=== PATIENT | male | born 1995 | race Caucasian/White ===

== ENCOUNTER 2022-03-25 18:30 | Observation (INO) ==
[2022-03-25 19:12] LABS: Basophils # (auto) 0.07 K/uL (0-0.2); Basophils % (auto) 0.8 %; Eosinophils # (auto) 0.02 K/uL (0-0.50); Eosinophils % (auto) 0.2 %; Hematocrit (blood only) 40.2 % (40.1-51.0); Hemoglobin 13.6 g/dl (14.0-18.0); Immature Granulocytes # (auto) 0.02 K/uL (0.00-0.02); Immature Granulocytes % (auto) 0.2 %; Lymphocytes # (auto) 1.73 K/uL (1.2-3.4); Lymphocytes % (auto) 20.9 %; Mean Corpuscular Hemoglobin 30.7 pg (25.0-34.0); Mean Corpuscular Hgb Conc 33.8 g/dL (32.0-36.0); Mean Corpuscular Volume 90.7 fL (80.0-100.0); Monocytes # (auto) 0.55 K/uL (0.24-0.82); Monocytes % (auto) 6.7 %; Neutrophils # (auto) 5.88 K/uL (1.4-6.5); Neutrophils % (auto) 71.2 %; Platelet Count 335 K/uL (130-400); RDW Coefficient of Variation 12.2 % (11.5-14.5); RDW Standard Deviation 40.9 fL (36.4-46.3); Red Blood Count 4.43 M/uL (4.63-6.08); White Blood Count 8.27 K/ul (4.8-10.8)
[2022-03-25 19:32] LABS: Albumin Globulin Ratio 1.7 (0.9-2); Albumin Level 5.3 gm/dl (3.4-5.0); BUN Creatinine Ratio 11.4 (10-20); Bilirubin,Total 0.7 mg/dl (0.2-1.0); Calcium 10.2 mg/dl (8.5-10.1); Creatinine Clr Calc Pharmacy 81.2 ml/min; Est GFR (African American) 111.4 ml/min; Est GFR (Non-African American) 96.1 ml/min; Globulin 3.1 gm/dl (2.5-4.0); Potassium 3.7 mmol/L (3.5-5.1); Total Protein 8.4 gm/dl (6.0-8.3)
[2022-03-25 19:48] LABS: Appearance Urine Clear (Clear); Bilirubin Urine Negative (Negative); Blood Urine Negative (Negative); Color Urine Yellow; Glucose Urine UA Negative (Negative); Ketones Urine 2+ (Negative); Leukocyte Esterase Urine Negative (Negative); Nitrite Urine Negative (Negative); Protein Urine Negative (Negative); Urobilinogen Urine Negative (Negative)
[2022-03-25] MEDS ORDERED: KETOROLAC 30 MG/ML VIAL IV STA (23:07)
--- NOTE | 2022-03-25 23:13 | Emergency Department Note ---
History of Present Illness General Chief complaint: Back Injury/Pain Stated complaint: BACK PAIN, BLOOD IN STOOL, VOMITING BLOOD Time Seen by Provider: 03/25/22 22:56 History of Present Illness Maximum Pain Intensity: 6 This is a 27-year-old male presenting to the emergency department for evaluation of abdominal pain, blood in stool, one episode of bloody emesis, as well as right-sided low back pain. The patient is usually healthy and does not take medication on a regular basis. He has had some GI issues in the past and reports having upper and lower scoping performed through the [facility] system about 6 years ago for nonspecific anemia. This was reportedly normal. He does not have any recent travel history. The patient's most recent symptoms have been ongoing for about the past 3 weeks, but his most eliciting symptom today is that he now has right back/flank pain that is new. He feels like he is eating and drinking as normal. No family history of inflammatory bowel disease. He may have a cousin that has celiac disease. The patient does not have any history of abdominal surgery and rates his current discomfort a 6/10. He does not identify aggravating or alleviating factors. Past Med/Surg History Medical History No chronic diseases present Surgical History No significant past surgical history Social History Smoking Status: Current every day smoker Tobacco Type: E-cigarettes / Vaping Preferred Language: Greek Feels Safe at Home: Yes Review of Systems A total of 10 systems reviewed and were otherwise negative Physical Exam Vital Signs Vital Signs - 24 hr 03/25/22 18:42 03/25/22 21:39 03/25/22 23:20 Temperature 37.2 C Temperature Source Temporal Artery Scan Pulse Rate 119 H Pulse Rate [Finger] 96 H 68 Pulse Rhythm [Finger] Regular Pulse Strength [Finger] Normal Respiratory Rate 18 16 18 Respiratory Effort / Characteristics Non-Labored Spontaneous Non-Labored Spontaneous Respiratory Depth Normal Normal Normal Respiratory Pattern Regular Blood Pressure 158/82 H Blood Pressure [Right Arm] 165/88 H 136/95 Blood Pressure Mean 107 Blood Pressure Mean [Right Arm] 113 108 Blood Pressure Position [Right Arm] Lying Sitting Pulse Oximetry 98 100 99 Oxygen Delivery Method Room Air Room Air Room Air Sepsis Recent Fever Within 48 Hours No Sepsis New/Unexplained Change in Mental Status No Sepsis Action Taken by Nursing No Action Required 03/26/22 01:00 Temperature Temperature Source Pulse Rate Pulse Rate [Finger] 91 H Pulse Rhythm [Finger] Pulse Strength [Finger] Respiratory Rate 18 Respiratory Effort / Characteristics Non-Labored Spontaneous Respiratory Depth Normal Respiratory Pattern Blood Pressure Blood Pressure [Right Arm] 156/93 H Blood Pressure Mean Blood Pressure Mean [Right Arm] 114 Blood Pressure Position [Right Arm] Sitting Pulse Oximetry 98 Oxygen Delivery Method Room Air Sepsis Recent Fever Within 48 Hours Sepsis New/Unexplained Change in Mental Status Sepsis Action Taken by Nursing VITALS: Vitals are noted on the nurse's note and reviewed by myself. Vital signs stable. GENERAL: Well-developed, well-nourished, white male, who is in no acute distress and resting comfortably. Patient is cooperative with the examination. HEAD: Normocephalic atraumatic. MOUTH: Mucous membranes moist. Tonsils are not enlarged. Pharynx without erythema, blood, or exudate. Uvula midline. Airway patent. NECK: Supple without nuchal rigidity. No lymphadenopathy. No thyromegaly. Cervical spine is nontender. HEART: Regular rate and rhythm without murmurs gallops or rubs. LUNGS: Clear to auscultation bilaterally without wheezes, rales or rhonchi. No retractions or accessory muscle use. ABDOMEN: Positive normal bowel sounds x 4. Soft, nontender, without masses or organomegaly. No guarding or rebound tenderness. MUSCULOSKELETAL: No muscle atrophy, erythema, or edema noted. Full range of motion in all extremities. NEURO: Patient was alert and oriented to person place and time. CN II through XII grossly intact. Course Administered Medications Discontinued Medications Sodium Chloride (Nss 1000ml) 1,000 mls @ 999 mls/hr IV .Q1H1M YOMI Stop: 03/26/22 00:15 Last Infusion: 03/26/22 01:05 Dose: 0 mls/hr Documented By: Admin: 03/25/22 23:18 Dose: 999 mls/hr Documented By: CC Ioversol (Optiray 350 100ml) 100 ml IV ONCE ONE Stop: 03/25/22 23:37 Last Admin: 03/25/22 23:37 Dose: 84 ml Documented By: NICO Ketorolac Tromethamine (Ketorolac 30 Mg/Ml Vial) 30 mg IV NOW STA Stop: 03/25/22 23:08 Last Admin: 03/25/22 23:18 Dose: 30 mg Documented By: THERESE Medical Decision Making Differential Diagnosis Differential diagnosis: Etiologies such as biliary colic, cholecystitis, hepatitis, pancreatitis, cardiac disease, pancreatitis, gastritis, peptic ulcer disease, appendicitis, cystitis, diverticulitis, mesenteric ischemia, inflammatory bowel disease, ileus, bowel obstruction, testicular/adnexal torsion, aortic pathology, shingles, as well as others were considered Laboratory Data Result diagrams: 03/25/22 19:05 03/25/22 19:05 Lab Results 03/25/22 03/25/22 03/25/22 Range/Units 19:00 19:05 19:05 WBC 8.27 (4.8-10.8) K/ul RBC 4.43 L (4.63-6.08) M/uL Hgb 13.6 L (14.0-18.0) g/dl Hct 40.2 (40.1-51.0) % MCV 90.7 (80.0-100.0) fL MCH 30.7 (25.0-34.0) pg MCHC 33.8 (32.0-36.0) g/dL RDW Std Deviation 40.9 (36.4-46.3) fL RDW Coeff of Archie 12.2 (11.5-14.5) % Plt Count 335 (130-400) K/uL MPV 10.0 (9.4-12.4) fL Immature Gran % (Auto) 0.2 % Neut % (Auto) 71.2 % Lymph % (Auto) 20.9 % [place] % (Auto) 6.7 % Eos % (Auto) 0.2 % Baso % (Auto) 0.8 % Neut # (Auto) 5.88 (1.4-6.5) K/uL Lymph # (Auto) 1.73 (1.2-3.4) K/uL [place] # (Auto) 0.55 (0.24-0.82) K/uL Eos # (Auto) 0.02 (0-0.50) K/uL Baso # (Auto) 0.07 (0-0.2) K/uL Immature Gran # (Auto) 0.02 (0.00-0.02) K/uL ESR (0-15) mm/hr Sodium 138 (136-145) mmol/L Potassium 3.7 (3.5-5.1) mmol/L Chloride 100 (98-107) mmol/L Carbon Dioxide 27 (21-32) mmol/L Anion Gap 11 (3-11) BUN 12 (6-23) mg/dl Creatinine 1.05 (0.6-1.4) mg/dl Est Cr Clr Drug Dosing 81.2 ml/min Est GFR ( Amer) 111.4 ml/min Est GFR (Non-Af Amer) 96.1 ml/min BUN/Creatinine Ratio 11.4 (10-20) Glucose 110 H (70-99(Fasting)) mg/dl Calcium 10.2 H (8.5-10.1) mg/dl Magnesium (1.7-2.4) mg/dl Total Bilirubin 0.7 (0.2-1.0) mg/dl AST 36 (13-39) U/L ALT 28 (7-52) U/L Alkaline Phosphatase 45 (34-104) U/L C-Reactive Protein (0-0.5) mg/dl Total Protein 8.4 H (6.0-8.3) gm/dl Albumin 5.3 H (3.4-5.0) gm/dl Globulin 3.1 (2.5-4.0) gm/dl Albumin/Globulin Ratio 1.7 (0.9-2) Lipase 49 (11-82) U/L Urine Color Yellow Urine Appearance Clear (Clear) Urine pH 6.0 (4.5-7.5) Ur Specific Vanderbilt 1.020 (1.000-1.030) Urine Protein Negative (Negative) Urine Glucose (UA) Negative (Negative) Urine Ketones 2+ H (Negative) Urine Blood Negative (Negative) Urine Nitrite Negative (Negative) Urine Bilirubin Negative (Negative) Urine Urobilinogen Negative (Negative) Ur Leukocyte Esterase Negative (Negative) SARS-CoV-2, RNA, NAAT (NEGATIVE) 03/25/22 03/25/22 03/26/22 Range/Units 19:05 19:05 Unknown WBC (4.8-10.8) K/ul RBC (4.63-6.08) M/uL Hgb (14.0-18.0) g/dl Hct (40.1-51.0) % MCV (80.0-100.0) fL MCH (25.0-34.0) pg MCHC (32.0-36.0) g/dL RDW Std Deviation (36.4-46.3) fL RDW Coeff of Archie (11.5-14.5) % Plt Count (130-400) K/uL MPV (9.4-12.4) fL Immature Gran % (Auto) % Neut % (Auto) % Lymph % (Auto) % [place] % (Auto) % Eos % (Auto) % Baso % (Auto) % Neut # (Auto) (1.4-6.5) K/uL Lymph # (Auto) (1.2-3.4) K/uL [place] # (Auto) (0.24-0.82) K/uL Eos # (Auto) (0-0.50) K/uL Baso # (Auto) (0-0.2) K/uL Immature Gran # (Auto) (0.00-0.02) K/uL ESR 18 H (0-15) mm/hr Sodium (136-145) mmol/L Potassium (3.5-5.1) mmol/L Chloride (98-107) mmol/L Carbon Dioxide (21-32) mmol/L Anion Gap (3-11) BUN (6-23) mg/dl Creatinine (0.6-1.4) mg/dl Est Cr Clr Drug Dosing ml/min Est GFR ( Amer) ml/min Est GFR (Non-Af Amer) ml/min BUN/Creatinine Ratio (10-20) Glucose (70-99(Fasting)) mg/dl Calcium (8.5-10.1) mg/dl Magnesium 2.0 (1.7-2.4) mg/dl Total Bilirubin (0.2-1.0) mg/dl AST (13-39) U/L ALT (7-52) U/L Alkaline Phosphatase (34-104) U/L C-Reactive Protein < 0.50 (0-0.5) mg/dl Total Protein (6.0-8.3) gm/dl Albumin (3.4-5.0) gm/dl Globulin (2.5-4.0) gm/dl Albumin/Globulin Ratio (0.9-2) Lipase (11-82) U/L Urine Color Urine Appearance (Clear) Urine pH (4.5-7.5) Ur Specific Vanderbilt (1.000-1.030) Urine Protein (Negative) Urine Glucose (UA) (Negative) Urine Ketones (Negative) Urine Blood (Negative) Urine Nitrite (Negative) Urine Bilirubin (Negative) Urine Urobilinogen (Negative) Ur Leukocyte Esterase (Negative) SARS-CoV-2, RNA, NAAT NEGATIVE (NEGATIVE) Imaging Data Radiologist's Impression: Preliminary Findings Only See Final Report For Complete Findings CT ABDOMEN & PELVIS With Contrast: No bowel obstruction or inflammation. Negative for diverticulitis or colitis. There is sludge in the appendix. The appendiceal thickness is borderline at approximately 8 mm. This may be because of the intraluminal sludge. No appendiceal or periappendiceal inflammation is identified. Nevertheless correlate with any right lower quadrant pain to make sure there are no signs or symptoms of appendicitis. No free intraperitoneal air or free fluid. Normal liver. No calcified gallstones. Normal spleen. Normal pancreas. Normal adrenal glands. Normal kidneys and urinary bladder. Osseous structures are intact. Radiologist:Yann Rincon MD [facility] Narrative Physical exam and history were performed. Nursing notes, EMR, and Medication List were personally reviewed. Patient appears to have abdominal discomfort bringing him to the ER. Some of his symptoms have been ongoing for several weeks with some more right-sided back pain bringing him specifically to the ER tonight. He does not appear toxic on examination. The patient arrives during a period of very high ER volume and acuity with extended wait times. Nursing protocol orders are available for my review at the time of patient evaluation. The patient's blood work is as above and was reviewed. He does not have a significantly elevated white blood cell count, gross anemia, bandemia, or significant electrolyte imbalance. Lipase and transaminases are not diagnostic. Sed rate and CRP are unremarkable. Urine does not show obvious evidence of infection. I did engage with case management and they were able to find old [facility] records of the patient's upper and lower endoscopy that did not show any significant findings. Because of the patient's discomfort I did elect perform CT scan of the belly. CT scan was reviewed by myself and radiology, and [facility] reading may suggest an early appendicitis. He certainly does not have evidence of perforation or complicated findings otherwise. Because of the abnormal CT scan I did reach out to the surgical team. The patient was evaluated at bedside by Milo Rae PA-C, who will bring the patient into the hospital for observation and reevaluation in the morning. The patient did have a COVID test that was negative. Patient was pleased with this and was comfortable with staying in the hospital. Please see the surgical team's dictation for further patient course, plan, and disposition. The chart was completed utilizing [employer] Speech Voice Recognition Software. Grammatical errors, random word insertions, pronoun errors, and incomplete sentences are an occasional consequence of this system due to software limitations, ambient noise, and hardware issues. Any formal questions or concerns about the content, text, or information contained within the body of this dictation should be directly addressed to the provider for clarification. . Impression & Plan Abdominal pain in male, Abnormal CT of the abdomen Discharge Plan Visit Data Chief Complaint: Back Injury/Pain Stated Complaint: BACK PAIN, BLOOD IN STOOL, VOMITING BLOOD ED Provider: Tarsha Wells ED Midlevel Provider: Tristan Rosales Discharge Problem: Abdominal pain in male, Abnormal CT of the abdomen Forms Stand Alone Forms: My [facility] Referrals Referrals: PCP,NO [Primary Care Provider] -
[2022-03-25] MEDS ORDERED: SODIUM CHLORIDE 0.9% 1000ML 1,000 ML IV SCH (23:15)
[2022-03-25] MEDS ORDERED: OPTIRAY 350 100ml IV ONE (23:36)
[2022-03-25 23:42] LABS: C Reactive Protein < 0.50 mg/dl (0-0.5)
--- NOTE | 2022-03-26 01:23 | History & Physical Report ---
Date of Service March 26, 2022 Assessment & Plan (1) Abdominal pain: Plan: The cause of patient's abdominal pain is not definitively been ascertained. It is possible that the patient has appendicitis as he is noted to have borderline thickness of his appendix with some appendiceal sludge, however 1 would expect that patient would have some appendiceal or periappendiceal inflammation particularly with pain that has been ongoing for 3 weeks. In addition 1 would expect the patient would likely have leukocytosis with the same presentation. As it is not clear if the patient definitively has appendicitis we will proceed as follows: We will admit the patient on observation to the hospital We will keep the patient n.p.o. We will provide IV fluid for hydration Analgesics we provided Antiemetics will be provided We will monitor the patient without antibiotics for the present time and follow serial exams and serial labs. Have discussed case with my attending physician Dr. Franks. He wishes to personally review the CAT scan with our in-house radiologist in the morning and then determine if the patient will require surgery (the above-noted CT scan read was performed by the [facility] service) Will use SCDs for DVT prevention, no chemical means until it is ascertain if patient requires surgical intervention Additional recommendations be forthcoming based on his clinical course as it unfolds He will be a level 1 full code As above. Patient seen. WBC still normal with 6000. I reviewed the CT scan. His pain is primarily on his right buttock with some radiation to the lower abdomen as well as a little bit down the back of his leg. He is quite active. He has had this for about 3 weeks. He is afebrile. Vitals are stable. On examination he does not have any peritoneal signs. Negative Rovsing. Negative McBurney's. I do not believe he has acute appendicitis. Clinically consistent with musculoskeletal issue. I will discharge him today on twice daily Naprosyn as well as a Medrol Dosepak and he is to use heat to the affected area. He already has an appointment with his PCP on Wednesday and I would also like to see him in about a week. Should the symptoms get worse fever vomiting etc. he is to return to the emergency room. I have answered all his questions he agrees with this plan. History of Present Illness Chief Complaint: Abdominal and back pain Primary Care Provider: NO PCP This is a 27-year-old male who presented to [facility] emergency department secondary to ongoing abdominal and back pain. Patient notes that he has been having abdominal pain primarily located in the lower abdomen which appears to be greatest in the right lower quadrant for 3 weeks. Patient says that he has had nausea without vomiting. He denies any fevers, shakes, or chills. He does not note any modifying factors to his pain. He has not sought medical attention prior to today and has not been taking any antibiotics. He denies any prior abdominal surgeries. As the pain has been ongoing for 3 weeks I did question him what precipitated his emergency depa rtment visit and he notes that in addition to the abdominal pain which is not remitting he has developed some right sided flank/back pain. He denies any prior history of kidney stones. Since arrival to the emergency department the patient has had labs and imaging which I independent reviewed. He did undergo a CT scan of the abdomen and pelvis. This study showed the patient had sludge in the appendix with borderline appendiceal thickness measuring approximately 8 mm. There is no appendiceal or periappendiceal inflammation noted. There is no free intraperitoneal air or free fluid. There is no bowel obstruction. There is no evidence of diverticulitis or colitis. The kidneys appeared normal as did the urinary bladder. No gallstones were noted. Labs include a CBC her white blood cell count was 8.2. Hemoglobin and hematocrit were 13.6 and 40.2. Platelet count was within the normal range. Chemistry profile showed sodium, potassium, BUN, and creatinine were normal. There is no elevation of patient's LFTs or lipase. Urinalysis was not indicative of infection. A COVID test was negative. Concerning past medical history he denies any prior medical problems. Concerning past surgical history denies prior surgeries. The patient notes he is allergic to amoxicillin which causes hives. The patient also notes that he does not take any medications at home. Patient says that he smokes marijuana occasionally and does have a license for this. He says he also uses electronic cigarettes. Patient says that his father suffered a heart attack in his 50s. Since arrival to the emergency department he has received 30 mg of intravenous Toradol and 1 L of normal saline solution. At the time of my interview the patient was resting comfortably in bed and he was in no distress. 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 Beliefs That Will Affect Care: None Current Living Situation: Spouse Other Information That Helps Us Care for You: No Feels Safe at Home: Yes Safety Concerns: Feels Safe At This Time Assistive Devices: Glasses Review of Systems Constitutional: no fever and no chills Eyes: + corrective lenses; no eye pain Ear, Nose, Mouth, Throat: no ear pain Respiratory: no cough and no dyspnea Cardiovascular: no chest pain Gastrointestinal: + abdominal pain and + nausea; no vomiting Genitourinary: no dysuria Musculoskeletal: + back pain (Right flank) Integumentary: no rash Neurologic: no localized weakness Physical Exam Constitutional: WD/WN, vitals as above Eyes: Wears glasses ENMT: Ears: no hearing impairment and no external ear abnormality Mouth: no oropharynx abnormality Neck: trachea midline Respiratory: normal respiratory effort; no respiratory distress and no labored breathing Cardiovascular: Rate/Rhythm: regular rate and regular rhythm Gastrointestinal (Abdomen): Abdomen is soft, nonrigid, and nondistended. Patient did have pain with palpation in his lower abdomen which was greatest in the right lower quadrant. There is no rebound tenderness or guarding at the time of my exam. The patient also some noted CVA tenderness with percussion on the right side. Musculoskeletal: No calf tenderness Skin: no rashes Neurologic: moves all extremities Psychiatric: A+Ox3, euthymic affect Results & Data Results & Data ([facility]) Vital Signs (Past 12 Hours) Vital Signs Temp Pulse Pulse Resp BP BP Pulse Ox 03/26/22 01:00 91 H 18 156/93 H 98 03/25/22 23:20 68 18 136/95 99 03/25/22 21:39 96 H 16 165/88 H 100 03/25/22 18:42 37.2 C 119 H 18 158/82 H 98 O2 Del Method 03/26/22 01:00 Room Air 03/25/22 23:20 Room Air 03/25/22 21:39 Room Air 03/25/22 18:42 Room Air PG Care Time/CCT Total # of Minutes Spent Total Time Spent with Patient: Total time spent is greater than 50% in coordination of care (as documented) at patient's floor/unit and/or counseling patient: Coding Level of Care Code INT OBSERVATION CARE 70M LVL 3 Diagnoses Abdominal pain R10.9
[2022-03-26] MEDS ORDERED: Patient's ALLERGY Info needs ENTERED SCH (02:00)
[2022-03-26 02:46] LABS: Amphetamines+Metham, Urine Neg (Neg); Barbiturates, Urine Neg (Neg); Benzodiazepine, Urine Neg (Neg); Cocaine, Urine Neg (Neg); MDMA (Ecstacy), Urine Neg (Neg); Methadone, Urine Neg (Neg); Opiate, Urine Neg (Neg); Phencyclidine, Urine Neg (Neg)
[2022-03-26] MEDS ORDERED: ONDANSETRON INJ 2 MG/ML 2 ML VIAL IV PRN (04:06)
[2022-03-26] MEDS ORDERED: MoRPHine SULFATE 2 MG/ML CARP IV PRN (04:06)
[2022-03-26] MEDS ORDERED: ACETAMINOPHEN 1,000 MG/100 ML VIAL IV PRN (04:06)
[2022-03-26] MEDS ORDERED: LACTATED RINGER'S 1,000 ML IV SCH (04:06)
[2022-03-26 06:42] LABS: Basophils # (auto) 0.07 K/uL (0-0.2); Basophils % (auto) 1.1 %; Eosinophils # (auto) 0.04 K/uL (0-0.50); Eosinophils % (auto) 0.6 %; Hematocrit (blood only) 38.6 % (40.1-51.0); Hemoglobin 12.9 g/dl (14.0-18.0); Immature Granulocytes # (auto) 0.03 K/uL (0.00-0.02); Immature Granulocytes % (auto) 0.5 %; Lymphocytes # (auto) 1.98 K/uL (1.2-3.4); Lymphocytes % (auto) 31.8 %; Mean Corpuscular Hemoglobin 30.9 pg (25.0-34.0); Mean Corpuscular Hgb Conc 33.4 g/dL (32.0-36.0); Mean Corpuscular Volume 92.6 fL (80.0-100.0); Mean Platelet Volume 9.4 fL (9.4-12.4); Monocytes # (auto) 0.52 K/uL (0.24-0.82); Monocytes % (auto) 8.3 %; Neutrophils # (auto) 3.59 K/uL (1.4-6.5); Neutrophils % (auto) 57.7 %; Platelet Count 283 K/uL (130-400); RDW Coefficient of Variation 12.2 % (11.5-14.5); RDW Standard Deviation 41.6 fL (36.4-46.3); Red Blood Count 4.17 M/uL (4.63-6.08); White Blood Count 6.23 K/ul (4.8-10.8)
--- NOTE | 2022-03-26 07:04 | CT Scan Report ---
CT OF THE ABDOMEN AND PELVIS WITH CONTRAST CLINICAL HISTORY: Lower abdominal pain. COMPARISON STUDY: None. TECHNIQUE: Following IV administration of 84 mL of Optiray, axial images of the abdomen and pelvis we re obtained from the lung bases to the proximal femurs. Images were reviewed in the axial, sagittal, and coronal planes. IV contrast was administered without complication. Automated exposure control wa s utilized for the study. A dose lowering technique was utilized adhering to the principles of ALARA . CT DOSE: 260.79 mGy.cm FINDINGS: Lung bases are unremarkable. No pneumatosis, free air or portal venous gas is present. Live r, spleen, adrenal glands, kidneys and pancreas are normal. There is no biliary or pancreatic ductal dilatation. There is no hydronephrosis. No peripancreatic or pericholecystic infiltration is present. The caliber and wall thickness of small and large bowel are normal. There is no evidence for a bowel obstruction. Appendicoliths are noted within the appendix. The appendix is mildly dilated, measuring 8 mm in caliber. However, there is also gas within the appendix and there is no periappendiceal infi ltration. The findings do not strongly suggest acute appendicitis. Major vasculature is patent. There is no lymphadenopathy. There is no fluid collection. IMPRESSION: 1. No bowel obstruction. No bowel wall thickening. 2. Mildly dilated appendix which contains appendicoliths. However, no periappendiceal infiltration. T he CT findings do not strongly suggest acute appendicitis. ACT 112: Negative or not required by law. Electronically signed by: Rodney Donahue M.D. 03/26/2022 7:02 AM
[2022-03-26 07:07] LABS: BUN Creatinine Ratio 12.9 (10-20); Creatinine Clr Calc Pharmacy 84.4 ml/min; Est GFR (African American) 116.8 ml/min; Est GFR (Non-African American) 100.8 ml/min; Potassium 4.3 mmol/L (3.5-5.1)
[2022-03-28 03:37] LABS: Marijuana Quant, GCMS Urine 598 ng/mL (<5)
--- NOTE | 2022-03-31 09:32 | Discharge Summary ---
Date of Service March 26, 2022 Admission HPI Per Admitting Provider This is a 27-year-old male who presented to [facility] emergency department secondary to ongoing abdominal and back pain. Patient notes that he has been having abdominal pain primarily located in the lower abdomen which appears to be greatest in the right lower quadrant for 3 weeks. Patient says that he has had nausea without vomiting. He denies any fevers, shakes, or chills. He does not note any modifying factors to his pain. He has not sought medical attention prior to today and has not been taking any antibiotics. He denies any prior abdominal surgeries. As the pain has been ongoing for 3 weeks I did question him what precipitated his emergency department visit and he notes that in addition to the abdominal pain which is not remitting he has developed some right sided flank/back pain. He denies any prior history of kidney stones. Since arrival to the emergency department the patient has had labs and imaging which I independent reviewed. He did undergo a CT scan of the abdomen and pelvis. This study showed the patient had sludge in the appendix with borderline appendiceal thickness measuring approximately 8 mm. There is no appendiceal or periappendiceal inflammation noted. There is no free intraperitoneal air or free fluid. There is no bowel obstruction. There is no evidence of diverticulitis or colitis. The kidneys appeared normal as did the urinary bladder. No gallstones were noted. Labs include a CBC her white blood cell count was 8.2. Hemoglobin and hematocrit were 13.6 and 40.2. Platelet count was within the normal range. Chemistry profile showed sodium, potassium, BUN, and creatinine were normal. There is no elevation of patient's LFTs or lipase. Urinalysis was not indicative of infection. A COVID test was negative. Concerning past medical history he denies any prior medical problems. Concerning past surgical history denies prior surgeries. The patient notes he is allergic to amoxicillin which causes hives. The patient also notes that he does not take any medications at home. Patient says that he smokes marijuana occasionally and does have a license for this. He says he also uses electronic cigarettes. Patient says that his father suffered a heart attack in his 50s. Since arrival to the emergency department he has received 30 mg of intravenous Toradol and 1 L of normal saline solution. At the time of my interview the patient was resting comfortably in bed and he was in no distress. Principal Diagnosis Flank pain Discharge Exam Constitutional WD/WN, vitals as above Gastrointestinal (Abdomen) Inspection/Auscultation: abdomen not distended Percussion/Palpation: + abdomen tender (flank) and abdomen soft Discharge Data Allergies Allergy/AdvReac Type Severity Reaction Status Date / Time amoxicillin Allergy Unknown Unknown Verified 03/26/22 04:11 Consultations 03/26/22 01:04 ED Decision to Admit Stat Ordered Studies 03/25/22 23:07 CT abd pelvis IV con only Stat Hospital Course (1) Abdominal pain: 27-year-old male presented the emergency department with 3-week history of right-sided pain including right flank and right abdomen. White count was normal CT was inconclusive on stat rad report. He was admitted to the surgical service for overnight observation. In the morning his white count remained normal. Reread of CT showed appendicoliths with no evidence of appendicitis. Presentation was consistent with musculoskeletal pain. He was stable for discharge home on Medrol Dosepak and twice daily Naprosyn Total Time Total Time Spent Total Time Spent (In Minutes): 15 Discharge Plan Discharge Items Patient Disposition: Home - Self-Care Reason For Visit: ABD PAIN Discharge Diagnosis: Flank pain Activity: As commented below Lifting: No more than 10 pounds Bathing: No limitations Exercise/Sports: Wait until after follow-up appointment Non-emergency contact: Surgeon Call non-emergency contact if: you have any medication questions, your pain is not controlled, you have a fever and your temperature is above 101.5 Follow-up/Referrals: Erik Franks, [Surgeon] - 04/06/22 2:15 pm (Please call to make an appt in 1 week) PCP,NO [Primary Care Provider] - Diet: Regular Addtl Attending Provider Instructions: You can apply warm compresses or heating pad to right side Pending Studies at Discharge: No Stand-Alone Forms: My [employer], Smoking Cessation Medications and DC Order Prescriptions: New naproxen 500 mg tablet 500 mg PO BID Qty: 30 0RF methylprednisolone [Medrol (Jason)] 4 mg tablets,dose pack See Rx Instructions .ROUTE .COMPLEX Qty: 21 0RF Rx Instructions: Take as directed Discharge Orders: Discharge Order (Routine); Ordered 03/26/22 Ordered By: Jalen Nixon Jr Admission Data Admit Date/Time: 03/26/22 01:26 Attending Provider: Erik Farnks Admit Provider: Cesar Rae Primary Care Provider: PCP,NO Other Providers: Erik Franks Other Interventions: Discharge Summary Assessment (RN) Last Done: 03/26/22 09:00 Coding Level of Care Code D/C DAY MANAGEMENT <30 MINS Diagnoses Abdominal pain R10.9
== END 2022-03-26 12:30 | disposition home or self-care (01) ==
LOC: 3N 18:30 → ED 18:30 → 3N 03-26 02:41